=== PATIENT | female | born 1995 | race African-American/Black ===

== ENCOUNTER 2017-05-20 14:30 | Emergency (ER) | payer OTHER ==
[2017-05-20 14:36] VITALS: BP 140/90; PULSE 68; TEMP 97.9; BMI 16.8
[2017-05-20] MEDS ORDERED: ACETAMINOPHEN 325 MG TABLET (FP) PO ONE (15:46)
[2017-05-20] MEDS ORDERED: ACETAMINOPHEN 325 MG TABLET (FP) ONE (16:01)
--- NOTE | 2017-05-20 16:06 | PDOC ---
History of Present Illness - General Chief Complaint: Allergic Reaction Stated Complaint: Allergic Reaction Time Seen by Provider: 05/20/17 14:58 History Source: Patient Exam Limitations: No Limitations - History of Present Illness Initial Comments: 05/20/17 16:06 22-year-old female with complaints of throat pain, headache and nausea and vomiting for the past day presents the ED for concern of allergic reaction since she recently started Zoloft 3 days ago. Patient denies difficulty swallowing, difficulty speaking, fever, chills, or weakness. Patient denies irregular menses other complaints at this time. Timing/Duration: changing over time Severity: mild Associated Symptoms: reports: headaches, nausea/vomiting Past History - Past Medical History Allergies/Adverse Reactions: Allergies Allergy/AdvReac Type Severity Reaction Status Date / Time No Known Allergies Allergy Verified 05/20/17 14:36 Home Medications: Ambulatory Orders Sertraline HCl [Zoloft] 12.5 mg PO DAILY 05/20/17 Psychiatric Problems: Yes (ANXIETY, DEPRESSION.) - Reproductive History LMP Normal: Yes Is Patient Now?: No - Immunization History Immunization Up to Date: Yes - Psycho/Social/Smoking Cessation Hx Anxiety: Yes Suicidal Ideation: No Smoking Status: No Smoking History: Never smoked Number of Cigarettes Smoked Daily: 0 Hx Alcohol Use: No Drug/Substance Use Hx: No Substance Use Type: None Patient Lives Alone: No Lives with/in: parents Review of Systems - Review of Systems Able to Perform ROS?: Yes Is the patient limited Citizen [place] proficient: No Constitutional: No: Symptoms Reported HEENTM: Yes: Throat Pain, Difficulty Swallowing. No: Throat Swelling Respiratory: No: Symptoms reported Cardiac (ROS): No: Symptoms Reported ABD/GI: Yes: Nausea, Vomiting : No: Symptoms Reported Integumentary: No: Symptoms Reported Neurological: Yes: Headache (mild frontal) Endocrine: No: Symptoms Reported Hematologic/Lymphatic: No: Symptoms Reported *Physical Exam - Vital Signs Last Vital Signs Temp Pulse Resp BP Pulse Ox 97.9 F 68 18 140/90 100 05/20/17 14:31 05/20/17 14:31 05/20/17 14:31 05/20/17 14:31 05/20/17 14:31 - Physical Exam General Appearance: Yes: Nourished, Appropriately Dressed. No: Apparent Distress HEENT: positive: EOMI, BJ, TMs Normal, Muffled/Hoarse voice, Pharyngeal Erythema. negative: Pale Conjunctivae, Tonsillar Exudate Neck: positive: Supple Respiratory/Chest: positive: Lungs Clear, Normal Breath Sounds. negative: Respiratory Distress, Accessory Muscle Use Cardiovascular: positive: Regular Rhythm, Regular Rate. negative: Murmur Gastrointestinal/Abdominal: positive: Soft. negative: Tenderness Extremity: positive: Normal Capillary Refill. negative: Pedal Edema Integumentary: positive: Normal Color, Warm, Moist Neurologic: positive: Normal Mood/Affect, Motor Strength 5/5 (ambulatory) Medical Decision Making - Medical Decision Making 05/20/17 16:16 Platelets of sore throat, difficulty swallowing, nausea, vomiting 1 with mild frontal headache for the past 2 days. Patient should be the symptoms to the medication Zoloft that she recently started 4 days ago for depression. Patient on exam had mild erythema to her posterior pharynx concerning for a viral illness versus strep. Patient ordered for rapid strep and Tylenol. I explained to patient the other GI symptoms may be related to the medication but not to stop the medication unless unable to tolerate food. 05/20/17 16:54 Rapid strep negative. Patient be discharged home with supportive care and told to continue her Zoloft And contact her doctor this week to discuss symptoms *DC/Admit/Observation/Transfer Diagnosis at time of Disposition: Sore throat, Nausea - Discharge Dispostion Disposition: HOME Condition at time of disposition: Improved - Referrals Referrals: Lincoln Soares MD [Primary Care Provider] - - Patient Instructions Printed Discharge Instructions: DI for Adverse Drug Reaction -- Allergic Additional Instructions: Please continue your medication as prescribed and follow-up with your primary care physician and discuss today's visit and findings.
== END 2017-05-20 17:10 | disposition home or self-care (01) ==
LOC: JER 14:30
DX: J02.9 Acute pharyngitis, unspecified (principal); F41.8 Other specified anxiety disorders
CPT/HCPCS: 87070; 87430; 99282-25